=== PATIENT | female | born 1990 | race Two or more races ===

== ENCOUNTER 2019-06-25 09:15 | Observation (INO) | payer MEDICAID ==
[2019-06-25] MEDS ORDERED: PREN-96 PO (09:39)
== END 2019-06-25 10:38 | disposition home or self-care (01) | DRG 566 ==
LOC: LDRP 09:15
PROVIDERS: ADMIT Obstetrics & Gynecology; ATTEND Obstetrics & Gynecology
DX: O69.81X0 Labor and delivery complicated by cord around neck, without compression, not applicable or unspecified (principal); Z3A.37 37 weeks gestation of pregnancy
CPT/HCPCS: 59025; 81002; G0378

== ENCOUNTER 2019-07-02 14:04 | Observation (INO) | payer MEDICAID ==
[~2019-07-02 14:04] MED LIST: PREN-96 PO
== END 2019-07-02 15:55 | disposition home or self-care (01) | DRG 566 ==
LOC: LDRP 14:04
PROVIDERS: ADMIT Specialist; ATTEND Specialist
DX: O69.81X0 Labor and delivery complicated by cord around neck, without compression, not applicable or unspecified (principal); Z3A.38 38 weeks gestation of pregnancy
CPT/HCPCS: 59025; 76818; 81002; G0378

== ENCOUNTER 2019-07-03 07:43 | Inpatient (IN) | payer MEDICAID ==
[~2019-07-03] VITALS: Ht 1 cm; Wt 0.5 kg
[2019-07-03] MEDS ORDERED: LACTATED RINGER'S 1,000 ML IV SCH (08:04)
[2019-07-03] MEDS ORDERED: LACT. RINGERS/OXYTOCIN 20UNITS 1,000 ML IV SCH (08:04)
[2019-07-03] MEDS ORDERED: PHISODERM TOP SOLN 240ML BTL TOP PRN (08:15)
[2019-07-03] MEDS ORDERED: METHYLERGONOVINE MALEATE 0.2 MG/ML AMP IM PRN (08:15)
[2019-07-03] MEDS ORDERED: DERMOPLAST 60ML BOTTLE TOP PRN (08:15)
[2019-07-03] MEDS ORDERED: LIDOCAINE 2%HCL (LOCAL ANESTH.) INJ 20ML MDV ID ONE (08:15)
[2019-07-03] MEDS ORDERED: NALBUPHINE HCL 10 MG/1ml INJECTION IV PRN (08:15)
[2019-07-03] MEDS ORDERED: WITCH HAZEL-GLYCERIN PAD TOP PRN (08:15)
[2019-07-03] MEDS ORDERED: LIDOCAINE 2%HCL (LOCAL ANESTH.) INJ 20ML MDV ONE (08:33)
[2019-07-03] MEDS ORDERED: LACT. RINGERS/OXYTOCIN 20UNITS 1,000 ML IV ONE (08:33)
[2019-07-03] MEDS ORDERED: METHYLERGONOVINE MALEATE 0.2 MG/ML AMP IM ONE (08:33)
[2019-07-03 08:35] LABS: Basophils # (auto) 0.1 uL; Basophils % (auto) 0.4 % (0.0-2.0); Eosinophils # (auto) 0 uL; Hematocrit 37.7 % (36.0-46.0); Hemoglobin 12.8 g/dL (12.2-16.2); Lymphocytes # (auto) 1.3 uL; Lymphocytes % (auto) 8.3 % (10.0-50.0); Mean Corpuscular Hemoglobin 29.8 pg (28.0-32.0); Mean Corpuscular Hgb Conc. 33.9 g/dL (32.0-36.0); Monocytes # (auto) 0.6 uL; Monocytes % (auto) 3.8 % (0.0-12.0); Neutrophils # (auto) 14.1 uL; Neutrophils % (auto) 87.5 % (37.0-80.0); Nucleated Red Blood Cells % 0.1 %; Platelet Count (auto) 162 10^3/uL (140-450); Red Blood Cells 4.28 10^6/uL (4.0-5.20); Red Cell Distribution Width 14.2 % (11.8-14.3); White Blood Cell 16.1 10^3/uL (4.4-10.8)
[2019-07-03 08:47] LABS: INR 0.95 (0.9-1.15); Partial Thromboplastin Time 24.4 sec (23.64-32.05)
[2019-07-03 08:57] LABS: Albumin 2.9 g/dL (3.4-5.0); BUN/Creatinine Ratio 12.5; Calcium 9.1 mg/dL (8.5-10.1); Potassium 3.6 mmol/L (3.5-5.1)
[2019-07-03 09:20] LABS: Bilirubin, Total 0.3 mg/dL (0.2-1.0); Total Protein 7.7 g/dL (6.4-8.2); Uric Acid 4.7 mg/dL (2.6-6.0)
[2019-07-03] MEDS ORDERED: ACETAMINOPHEN 325 MG TAB PO PRN (09:30)
[2019-07-03] MEDS ORDERED: IBUPROFEN 600 MG TAB PO PRN (09:30)
[2019-07-03 09:50] LABS: Urine Bacteria NONE SEEN /hpf (None Seen); Urine Blood 2+ /uL (Negative); Urine Hyaline Cast FEW /lpf (0 - 2); Urine Mucus FEW (None Seen); Urine Specific Gravity 1.025 (1.001-1.035); Urine WBC 2 /hpf (0 - 5)
--- NOTE | 2019-07-03 12:40 | NUR ---
Ambulation: Patient OOB with standby assistance by RN. Patient ambulated to bathroom with steady gait. Patient able to void without difficulty 600ml. Pericare teaching provided with returned demonstration by patient. Clean gown provided and bed linen changed. Patient ambulated back to bed with steady gait and no distress noted.
[2019-07-03 15:00] VITALS: BP 126/78
[2019-07-03 19:00] VITALS: BP 119/73
[2019-07-03 23:00] VITALS: BP 112/71
[2019-07-04 03:00] VITALS: BP 106/79
[2019-07-04 05:06] LABS: RPR Non Reactive (Non Reactive)
[2019-07-04 06:06] LABS: Rubella Antibodies, IgG 4.28 index (Immune >0.99)
--- NOTE | 2019-07-04 06:20 | NUR ---
Report received from Audra Raphael RN on stable pt. Assumed care.
[2019-07-04 06:50] VITALS: BP 112/91
[2019-07-04 11:10] VITALS: BP 112/64
--- NOTE | 2019-07-04 12:30 | NUR ---
IV removal 20g IV RIGHT WRIST DC'd with sterile technique, catheter fully intact. Pressure dressing applied to site. Patient tolerated procedure well. Addendum: 07/04/19 at 1435 by Anaid Regan RN Amended: Links added.
[2019-07-04] MEDS ORDERED: INFLUENZA QUAD 2019-2020 0.5ml SYRG IM ONE (14:30)
[2019-07-04 15:30] VITALS: BP 100/70
--- NOTE | 2019-07-04 15:30 | NUR ---
Dr. Renee called and informed of temp 99.2, pt is asymptomatic. Okay to give flu vaccine per Dr. Renee.
--- NOTE | 2019-07-04 18:20 | NUR ---
Report given to Audra Raphael RN on stable pt. Relinquished care. Addendum: 07/04/19 at 1825 by Anaid Regan RN Amended: Links added.
[2019-07-04 18:30] VITALS: BP 122/68
--- NOTE | 2019-07-04 18:45 | NUR ---
Discharge: Discharge instructions given as ordered. Pt encouraged to follow up with [employer] as instructed. All questions and concerns addressed. Patient verbalized understanding. Medication reconciliation completed and copy given to patient. All required/requested vaccines given and copies of vaccinations given to patient. Patient encouraged to prepare to depart unit.
[2019-07-04 19:15] VITALS: BP 122/68
--- NOTE | 2019-07-04 19:15 | NUR ---
Discharge: Patient taken to vehicle ambulation per patient request with all personal belongings, accompanied by staff and family member. No distress noted at time of departure, no adverse changes in status since initial assessment.
== END 2019-07-04 19:15 | disposition home or self-care (01) | DRG 560 ==
LOC: LDRP 07:43 → UNDOADMOB 07:43 → INTOOBSV 08:00 → OBSVTOIN 08:00 → LDRP 08:00
PROVIDERS: ADMIT Obstetrics & Gynecology; ATTEND Obstetrics & Gynecology
PROC: 10E0XZZ Delivery of Products of Conception, External Approach (ICD-10-PCS; principal; 2019-07-03)
PROC: 0W8NXZZ Division of Female Perineum, External Approach (ICD-10-PCS; 2019-07-03)
PROC: 0KQM0ZZ Repair Perineum Muscle, Open Approach (ICD-10-PCS; 2019-07-03)
DX: O69.81X0 Labor and delivery complicated by cord around neck, without compression, not applicable or unspecified (principal); O70.1 Second degree perineal laceration during delivery; Z3A.39 39 weeks gestation of pregnancy; Z37.0 Single live birth
CPT/HCPCS: 36415; 59025; 59409; 80053; 81001; 81002; 84112; 84550; 85025; 85610; 85730; 86592; 86703; 86762; 86850; 86900; 86901; 87340; 96361; 96366; 96372; G0378; J2590